=== PATIENT | female | born 1990 | race Caucasian/White ===

== ENCOUNTER 2023-04-23 09:56 | Inpatient (IN) | payer BC ==
[~2023-04-23] VITALS: Ht 162.6 cm; Wt 78.5 kg
[2023-04-23 11:06] LABS: BASOPHILS % 0.6 % (0.0-2.0); EOSINOPHILS % 1.5 % (0.0-5.0); HEMATOCRIT. 42.7 % (36.0-48.0); HEMOGLOBIN. 14.3 g/dL (12.0-16.0); LYMPHOCYTES % 20.2 % (20.0-50.0); MEAN CORPUSCULAR HEMOGLOBIN 29.7 pg (28.0-32.0); MEAN CORPUSCULAR HGB CONC 33.4 g/dL (31.0-37.0); MEAN PLATELET VOLUME 8.1 fl (7.4-10.4); MONOCYTES % 5.9 % (2.0-8.0); NEUTROPHILS % 71.8 % (40.0-76.0); PLATELET 249 x1000/uL (130-400); RED CELL DISTRIBUTION WIDTH 12.6 % (11.6-14.6); WHITE BLOOD COUNT 6.7 x1000/uL (4.5-11.0)
[2023-04-23 11:12] LABS: CHLORIDE 107 mEq/L (98-107); INDEX HEMOLYSI 1 (1-3); INDEX ICTERIC 1 (1-4); INDEX LIPEMIC 1 (1-3); POTASSIUM 4.2 mEq/L (3.5-5.1); SODIUM 138 mEq/L (136-145)
[2023-04-23 11:23] LABS: ALANINE AMINOTRANSFERASE 35 IU/L (13-61); ASPARTATE AMINOTRANSFERASE 20 IU/L (15-37); BILIRUBIN TOTAL 0.3 mg/dL (0.1-1.0); CALCIUM 8.9 mg/dL (8.5-10.1); CARBON DIOXIDE 27 mEq/L (21-32); CREATININE 0.6 mg/dL (0.6-1.3); GLUCOSE 97 mg/dL (70-105); PROTEIN TOTAL 7.8 g/dL (6.0-8.3); TROPONIN I HIGH SENSITIVITY 4 ng/L (<54); UREA NITROGEN BLOOD 12 mg/dL (7-21)
[2023-04-23 12:03] LABS: CLARITY URINE CLEAR (CLEAR); COLOR URINE YELLOW (YELLOW); GLUCOSE URINE NEGATIVE (NEGATIVE); KETONES URINE NEGATIVE (NEGATIVE); LEUKOCYTE ESTERASE URINE NEGATIVE (NEGATIVE); NITRITE URINE NEGATIVE (NEGATIVE); OCCULT BLOOD URINE NEGATIVE (NEGATIVE); PH URINE 7.5 (4.5-8.0); PROTEIN URINE NEGATIVE (NEGATIVE); SPECIFIC GRAVITY URINE 1.012 (1.005-1.030); UROBILINOGEN URINE 0.2 E.U./dL (0.2-1.0)
[2023-04-23 12:55] LABS: *AMPHETAMINES SCREEN URINE NEGATIVE (NEGATIVE); *BARBITURATES SCREEN URINE NEGATIVE (NEGATIVE); *BENZODIAZEPINES SCREEN URINE NEGATIVE (NEGATIVE); *COCAINE SCREEN URINE NEGATIVE (NEGATIVE); CANNABINOID URINE SCREEN NEGATIVE (NEGATIVE); ECSTASY MDMA SCREEN URINE NEGATIVE (NEGATIVE); OPIATES URINE SCREEN NEGATIVE (NEGATIVE); PHENCYCLIDINE URINE SCREEN NEGATIVE (NEGATIVE)
[2023-04-23 17:14] LABS: TROPONIN I HIGH SENSITIVITY < 4 ng/L (<54)
[2023-04-24 04:46] VITALS: BP 110/70; PULSE 73; RESP 18; TEMP 97.7
[2023-04-24 04:50] VITALS: BP 110/73; PULSE 73; RESP 18; TEMP 97.7
[2023-04-24] MEDS ORDERED: ACETAMINOPHEN 325MG TABLET PO PRN (05:00)
[2023-04-24] MEDS: MECLIZINE 25MG TABLET PO SCH ×3 (05:18→21:29)
[2023-04-24 08:00] VITALS: BP 91/52; PULSE 68; RESP 18; TEMP 97.1
[2023-04-24 12:00] VITALS: BP 97/60; PULSE 67; RESP 18; TEMP 97.8
[2023-04-24] MEDS ORDERED: ONDANSETRON HCL 4MG/2ML INJ IV PRN (15:15)
[2023-04-24 15:29] VITALS: BP_SYST 100; BP_SYST 114; BP_SYST 121; BP_DIAS 55; BP_DIAS 66; BP_DIAS 70; PULSE 70; RESP 18; TEMP 97.9
[2023-04-24 20:00] VITALS: BP_SYST 104; BP_SYST 130; BP_SYST 95; BP_DIAS 51; BP_DIAS 59; BP_DIAS 65; PULSE 71; RESP 18; TEMP 97.9
[2023-04-25] VITALS: BP 130/60; PULSE 75; RESP 19; TEMP 98.2
[2023-04-25 04:00] VITALS: BP 94/56; PULSE 65; RESP 19; TEMP 97.5
[2023-04-25] MEDS: MECLIZINE 25MG TABLET PO SCH (05:22)
[2023-04-25 08:27] VITALS: BP 108/71; PULSE 71; RESP 18; TEMP 96.9
[2023-04-25 09:37] LABS: HCG SCREEN NEGATIVE
[2023-04-25] MEDS ORDERED: LORAZEPAM 2MG/ML CPJ IV NR (10:00)
[2023-04-25 12:00] VITALS: BP 108/71; PULSE 71; RESP 16; TEMP 97.5
[2023-04-25 13:37] VITALS: BP 108/71; PULSE 71; TEMP 97.5; O2SAT 99
== END 2023-04-25 16:06 | disposition home or self-care (01) | DRG 74 ==
LOC: ER 09:56 → MICUSO 14:37 → 7WST 04-24 05:01
PROVIDERS: ADMIT Internal Medicine; ATTEND Internal Medicine
DX: G90.8 Other disorders of autonomic nervous system (principal); G89.29 Other chronic pain; H53.2 Diplopia; W18.39XA Other fall on same level, initial encounter; Y93.01 Activity, walking, marching and hiking; Y92.89 Other specified places as the place of occurrence of the external cause; Y99.8 Other external cause status
CPT/HCPCS: 36415; 70553; 71045; 72156; 80053; 80305; 81003; 84484; 84703; 85025; 85379; 93005; 99285; J2060; J8597